=== PATIENT | female | born 1995 | race Caucasian/White ===

== ENCOUNTER → 2021-06-28 | Day surgery (SDC) | payer OTHER ==
[~2021-06-28] VITALS: Ht 162.6 cm; Wt 63.5 kg
[~2021-06-28] MED LIST: BENTYL10 MG PO; CIPRO500 MG PO; LEVSIN-SL0.125 M1 SL; LOMOTIL1 EACH PO; MACROBID100 MG PO; ONDANSETRON ODT4 MG PO; ONDANSETRON ODT4 MG SL; PRILOSEC20 MG PO; VENTOLIN HFA IN18 GM INH
[2021-06-28 08:55] LABS: HCG (URINE) SCREEN NEGATIVE (NEGATIVE)
== END | disposition home or self-care (01) ==
LOC: FAS 08:38
PROVIDERS: Anesthesiology
DX: K21.00 Gastro-esophageal reflux disease with esophagitis, without bleeding (principal); K29.70 Gastritis, unspecified, without bleeding; J45.909 Unspecified asthma, uncomplicated; Z87.891 Personal history of nicotine dependence
CPT/HCPCS: 84703; J2250; J2704; J7120

== ENCOUNTER 2021-07-10 13:03 | Emergency (ER) | payer OTHER ==
[2021-07-10 14:14] LABS: BASOPHIL 0.3 % (0-2); EOSINOPHIL 1.6 % (0-5); HCT 44.6 % (37.0-47.0); LYMPHOCYTE 4.8 % (15-48); MCH 29.9 pg (25.0-31.0); MCHC 33.6 g/dL (32.0-36.0); MCV 88.8 fL (78.0-100.0); MONOCYTE 6.6 % (0-12); MPV 11.7 fL (6.0-9.5); NEUTROPHIL 86.4 % (41-80); NRBC 0; PLT 157 K/uL (150-400); RBC 5.02 M/uL (4.20-5.40); RDW 12.1 % (11.5-14.0); WBC 13.4 K/uL (4.0-10.5)
[2021-07-10 14:17] LABS: BILIRUBIN NEGATIVE (NEGATIVE); BLOOD TRACE-INTACT Ery/uL (NEGATIVE); CLARITY CLEAR (CLEAR); COLOR YELLOW (YELLOW); GLUCOSE (U) NORMAL (NORMAL); LEUKOCYTES NEGATIVE Leu/uL (NEGATIVE); NITRITE NEGATIVE (NEGATIVE); PROTEIN NEGATIVE (NEGATIVE); SPECIFIC GRAVITY 1.025 (1.001-1.030); UROBILINOGEN 0.2 mg/dL (0.2-1.0)
[2021-07-10 14:21] LABS: AMPHETAMINES NEGATIVE (NEGATIVE); BARBITURATES NEGATIVE (NEGATIVE); ECSTASY (MDMA) NEGATIVE (NEGATIVE); MARIJUANA (THC) POSITIVE (NEGATIVE); METHADONE NEGATIVE (NEGATIVE); OPIATES NEGATIVE (NEGATIVE); OXYCODONE NEGATIVE (NEGATIVE)
[2021-07-10 14:23] LABS: BACTERIA 1+; MUCOUS MODERATE; URINARY WBC RARE
[2021-07-10 14:32] LABS: BILIRUBIN - TOTAL 0.7 mg/dL (0.2-1.0); BUN/CREAT RATIO (CALC) 12.9 RATIO; CREATININE 0.85 mg/dL (0.51-0.95); GLOBULIN (CALCULATION) 3.3 g/dL; POTASSIUM 3.7 mmol/L (3.5-5.1); TOTAL PROTEIN 7.3 g/dL (6.4-8.2)
[2021-07-10] MEDS ORDERED: BENTYL10 MG PO (15:06)
[2021-07-10] MEDS ORDERED: PEPCID AC20 MG PO (15:06)
== END 2021-07-10 15:17 | disposition home or self-care (01) ==
LOC: FER 13:03
PROVIDERS: Nurse Practitioner Family
DX: R10.84 Generalized abdominal pain (principal); R11.2 Nausea with vomiting, unspecified; R19.7 Diarrhea, unspecified; K21.9 Gastro-esophageal reflux disease without esophagitis; Z28.310 Unvaccinated for COVID-19; Z87.891 Personal history of nicotine dependence
CPT/HCPCS: 36415; 80053; 80305; 81001; 82150; 83690; 85025; J2405; J7030

== ENCOUNTER 2021-11-13 08:51 | Emergency (ER) | payer OTHER ==
[~2021-11-13 08:51] MED LIST changes: +PEPCID AC20 MG PO
[2021-11-13 10:13] LABS: BASOPHIL 0.7 % (0-2); EOSINOPHIL 5.3 % (0-5); HGB 13.4 g/dl (12.5-16.0); LYMPHOCYTE 20.5 % (15-48); MCH 29.6 pg (25.0-31.0); MCHC 32.7 g/dL (32.0-36.0); MCV 90.5 fL (78.0-100.0); MONOCYTE 7.4 % (0-12); MPV 11.4 fL (6.0-9.5); NEUTROPHIL 65.8 % (41-80); NRBC 0; PLT 159 K/uL (150-400); RBC 4.53 M/uL (4.20-5.40); RDW 12.3 % (11.5-14.0); WBC 8.9 K/uL (4.0-10.5)
[2021-11-13 10:14] LABS: BILIRUBIN 1+ mg/dL (NEGATIVE); BLOOD 3+ Ery/uL (NEGATIVE); CLARITY CLEAR (CLEAR); COLOR YELLOW (YELLOW); GLUCOSE (U) TRACE mg/dL (NORMAL); LEUKOCYTES 2+ Leu/uL (NEGATIVE); NITRITE POSITIVE (NEGATIVE); PROTEIN 3+ mg/dL (NEGATIVE); SPECIFIC GRAVITY 1.025 (1.001-1.030); pH 7.5 (5.0-9.0)
[2021-11-13 10:19] LABS: URINARY RBC 20-50
[2021-11-13 10:20] LABS: BACTERIA TRACE
[2021-11-13 10:47] LABS: BILIRUBIN - TOTAL 0.2 mg/dL (0.2-1.0); BUN/CREAT RATIO (CALC) 11.6 RATIO; CREATININE 0.95 mg/dL (0.51-0.95); GLOBULIN (CALCULATION) 3.3 g/dL; POTASSIUM 4.3 mmol/L (3.5-5.1); TOTAL PROTEIN 7.3 g/dL (6.4-8.2)
[2021-11-13] MEDS ORDERED: CEPHALEXIN500 MG PO (11:36)
[2021-11-13] MEDS ORDERED: ONDANSETRON ODT4 MG PO (11:36)
== END 2021-11-13 12:06 | disposition home or self-care (01) ==
LOC: FER 08:51
PROVIDERS: Emergency Medicine
DX: N12 Tubulo-interstitial nephritis, not specified as acute or chronic (principal); Z98.51 Tubal ligation status; Z87.442 Personal history of urinary calculi
CPT/HCPCS: 36415; 80053; 81001; 85025; 87076; 87088; 87186; J0696; J1885; J2405; J7030